=== PATIENT | male | born 2000 | race Caucasian/White ===

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

== ENCOUNTER 2023-04-22 13:47 | Emergency (ER) | payer MEDICAID, SELFPAY ==
[2023-04-22 13:49] VITALS: BP 135/95; PULSE 83; RESP 20; TEMP 35.8; O2SAT 96; BMI 33.8
--- NOTE | 2023-04-22 14:15 | ED.VIS.GI ---
HPI HPI - GI History of Present Illness Chief Complaint: GI Bleed Detail of Chief Complaint: Blood per rectum Informant: patient Abdominal Pain/Flank Pain Onset: Yesterday Context: Sudden Onset Timing: Intermittent Quality: - (Pain) Location: - (Anal) Current Severity: Mild Maximum Severity: Moderate Worsened by: - (Bowel movement and wiping) Relieved by: Nothing Nausea/Vomiting/Emesis GI Symptom: Positive for Nausea; Negative for Vomiting Diarrhea/Melena/Hematochezia GI Symptom: Positive for Hematochezia; Negative for Diarrhea or Melena Associated Symptoms Associated Symptoms: Negative for Dysuria, Frequency, Hematuria or Urgency Narrative Narrative: Patient is a 22-year-old male presents with bright red blood for the past 2 days per rectum. He noted bright red blood on toilet paper. States when his shower he had bright red blood when he was cleaning. Yesterday when he wiped he felt a bump. He denies history of hemorrhoids. Nuys history of liver disease. He is a nondrinker. He denies bruising easily. He denies rash lower extremity exam. He denies orthostatic symptoms. He does feel slightly bloated. He denies vomiting. Prior similar symptoms: No Recent Illness/Hospitalization: No PFSH PFSH Medical History Chronic constipation Leaky heart valve Home Medications NK 02/28/20 [History Last Taken Unknown] Allergy/AdvReac Type Severity Reaction Status Date / Time amoxicillin Allergy Rash Verified 04/22/23 14:15 Penicillins [PCN] Allergy Rash Verified 04/22/23 14:15 cefdinir [From Omnicef] AdvReac Unknown Verified 04/22/23 14:15 Social History (Updated 04/22/23 @ 14:[address] Christopher Bautista MD) household members: family Smoking Status: Current every day smoker tobacco type: cigarettes alcohol intake: never substance use type: does not use ROS ROS ED Constitutional Constitutional ED: Denies chills, fever(s), subjective or sweats Respiratory/Chest Respiratory/Chest: Denies dyspnea Gastrointestinal Gastrointestinal: Reports constipation and other Details: Per HPI narrative ; Denies abdominal pain, diarrhea, melena, nausea or vomiting Genitourinary Genitourinary ED: Denies dysuria, hematuria or urinary frequency Integumentary Denies rash Hematologic/Lymphatic Hematologic/Lymphatic: Denies easy bleeding, easy bruising or lymphadenopathy EXAM Physical Exam Const Vital Signs: 04/22/23 13:49 Temperature 96.5 F L Temperature Source Temporal Pulse Rate 83 Respiratory Rate 20 H Blood Pressure 135/95 H Blood Pressure Mean 108 Pulse Ox 96 Oxygen Delivery Method Room Air Positive well nourished, well developed and obese General Appearance ED: well developed and NAD; Negative for pallor Nutritional Appearance: obese HEENT Reports moist mucous membranes normocephalic and atraumatic Eyes PERRL and EOMs intact bilaterally General Eye ED: Negative for pale conjunctiva or scleral icterus Neck no lymphadenopathy, supple and no JVD Resp normal respiratory effort and clear to auscultation bilaterally Cardio regular rate, regular rhythm, S1 normal heart sound, S2 normal heart sound and no murmurs GI non-tender, non-distended and no masses GI Narrative: Exam there is no fissures, fistulas or hemorrhoids noted. There is bright red blood noted around the anus. Auscultation: normoactive bowel sounds Palpation: soft Back/Spine no CVA tenderness Extremity full ROM Neuro CN's II-XII intact bilaterally, moves all extremities, no sensory deficits noted and gait normal Sensorium / Orientation: alert Motor Exam: strength 5/5 throughout Psych mental status grossly normal and thought process normal Skin no wounds General Skin Exam: Negative for jaundice or pallor MDM MDM MDM Narrative Medical decision making narrative: He is suggestive and consistent with bright red blood per rectum due to hemorrhoidal bleeding. Suspect he has hemorrhoid. There was none visualized. Anoscopy was undertaken. Based on the history and amount of blood loss reported and the fact that patient clinically does not appear anemic blood work was not obtained. He is on no anticoagulant Procedures Other Procedures Procedure(s): Anoscopy: Patient noted to have a hemorrhoid which was thrombosed and spontaneously ruptured. There was passage of a clot the size of a chickpea. Patient did have discomfort during the anoscopy exam. The rectal mucosa was otherwise unremarkable. Stool noted above the anoscope was brown. Discharge Plan Triage Chief Complaint: GI Bleed ED Provider: Christopher Bautista Dx/Rx/DC Orders Clinical Impression: External hemorrhoid, bleeding, External hemorrhoid, thrombosed Instructions: ED Hemorrhoids Prescriptions: No Action NK Primary Care Provider: Mando Loredo Referrals: Mando Loredo DO [Primary Care Provider] - 10-14 Days if not better Activity Restrictions/Additional Instructions: History of chronic constipation recommend Metamucil twice a day for the next week then once daily. Disposition Disposition: Home, Self Care
[2023-04-22 14:36] VITALS: PULSE 76; O2SAT 97
== END 2023-04-22 14:42 | disposition home or self-care (01) ==
LOC: ED 14:42
PROVIDERS: Emergency Provider Emergency Medicine; PCP Preventive Medicine Occupational Medicine; Visit Provider Emergency Medicine
DX: K64.5 Perianal venous thrombosis (principal); K92.1 Melena; R19.7 Diarrhea, unspecified; R10.9 Unspecified abdominal pain; R11.0 Nausea; E66.9 Obesity, unspecified; F17.210 Nicotine dependence, cigarettes, uncomplicated
CPT/HCPCS: 46600; 99282